=== PATIENT | female | born 1935 | race Caucasian/White ===

== ENCOUNTER 2019-11-20 11:54 | Inpatient (IN) | payer MEDICARE ==
--- NOTE | 2019-11-20 12:20 | ED ---
General Adult HPI - General Chief complaint: Arrhythmia/Palpitations Stated complaint: Tachycardia Time Seen by Provider: 11/20/19 12:06 Source: patient, family, EMS, RN notes reviewed Mode of arrival: EMS Limitations: physical limitation - History of Present Illness Initial comments: patient is a pleasant 84-year-old female presenting to the emergency department with fatigue and dysrhythmia. Heart rate has been as high as 142 last night and 138 this morning. Blood pressure was in the 80s. Patient does have history of A. fib recently diagnosed a few months ago. Patient has been more fatigued and easily falling asleep. No confusion. No weakness. Patient denies any chest discomfort or dyspnea. Patient does have history of hyponatremia, last sodium level was 127 through primary care physician office. - Related Data Allergies Allergy/AdvReac Type Severity Reaction Status Date / Time amiodarone AdvReac Unknown Verified 11/20/19 12:22 amoxicillin [From Augmentin] AdvReac Rash/Hives Verified 11/20/19 12:19 clavulanic acid AdvReac Rash/Hives Verified 11/20/19 12:19 [From Augmentin] Review of Systems ROS Statement: Those systems with pertinent positive or pertinent negative responses have been documented in the HPI. ROS Other: All systems not noted in ROS Statement are negative. Constitutional: Denies: fever Eyes: Denies: eye pain ENT: Denies: ear pain Respiratory: Denies: cough, dyspnea Cardiovascular: Reports: as per HPI. Denies: chest pain Endocrine: Reports: fatigue Gastrointestinal: Denies: abdominal pain Genitourinary: Denies: dysuria Musculoskeletal: Denies: back pain Skin: Denies: rash Neurological: Denies: weakness Past Medical History Past Medical History: Atrial Fibrillation, Hypertension History of Any Multi-Drug Resistant Organisms: None Reported Past Surgical History: Breast Surgery Additional Past Surgical History / Comment(s): pts daughter states she had left side breast cancer with masectomy in 1993, pts daughter also states her mom has been diagnosed with A-Fib from another doctor that is out of state, pt was living with other daughter in different state, and that pt fell approx 3 weeks ago resulting in left broken wrist and also had juanita removed from head last Wednesday Past Psychological History: No Psychological Hx Reported Smoking Status: Never smoker Past Alcohol Use History: None Reported Past Drug Use History: None Reported General Exam Limitations: no limitations General appearance: alert, in no apparent distress Head exam: Present: normocephalic Eye exam: Present: normal appearance, PERRL, EOMI ENT exam: Present: normal oropharynx Neck exam: Present: normal inspection Respiratory exam: Present: normal lung sounds bilaterally Cardiovascular Exam: Present: irregular rhythm GI/Abdominal exam: Present: soft. Absent: tenderness Extremities exam: Present: normal inspection, other (Brace on the left wrist) Neurological exam: Present: alert, oriented X3, CN II-XII intact. Absent: motor sensory deficit Expanded Neurological exam: Present: protecting the airway Patient oriented to: Present: person, place, time Motor strength exam: RUE: 5, LUE: 5, RLE: 5, LLE: 5 Eye Response: (4) open spontaneously Motor Response: (6) obeys commands Verbal Response: (5) oriented Psychiatric exam: Present: normal affect, normal mood Skin exam: Present: normal color Course Vital Signs 11/20/19 12:01 Temperature 98.2 F Pulse Rate 81 Respiratory 16 Rate Blood Pressure 122/54 O2 Sat by Pulse 97 Oximetry EKG Findings - EKG Comments: EKG Findings:: A. fib with rate of 90. QRS 84. QT 368. QTC 450. Normal axis. Normal QRS. T wave flattening. Medical Decision Making - Medical Decision Making Patient reevaluated. Patient and family updated. Heart rate jumps between 90 and 120. Case was discussed with Dr. Santoro, who will admit covering for hospital call. - Lab Data Result diagrams: 11/20/19 13:09 11/20/19 13:09 Lab Results 11/20/19 11/20/19 11/20/19 Range/Units 13:09 13:09 13:09 WBC 6.7 (3.8-10.6) k/uL RBC 3.75 L (3.80-5.40) m/uL Hgb 10.2 L (11.4-16.0) gm/dL Hct 33.1 L (34.0-46.0) % MCV 88.4 (80.0-100.0) fL MCH 27.2 (25.0-35.0) pg MCHC 30.7 L (31.0-37.0) g/dL RDW 18.0 H (11.5-15.5) % Plt Count 345 (150-450) k/uL Neutrophils % 66 % Lymphocytes % 16 % Monocytes % 13 % Eosinophils % 3 % Basophils % 0 % Neutrophils # 4.4 (1.3-7.7) k/uL Lymphocytes # 1.1 (1.0-4.8) k/uL Monocytes # 0.9 (0-1.0) k/uL Eosinophils # 0.2 (0-0.7) k/uL Basophils # 0.0 (0-0.2) k/uL Manual Slide Review Performed Polychromasia Present Hypochromasia Moderate Anisocytosis Slight PT 11.3 (9.0-12.0) sec INR 1.1 (<1.2) APTT 25.8 (22.0-30.0) sec Sodium 132 L (137-145) mmol/L Potassium 4.7 (3.5-5.1) mmol/L Chloride 95 L (98-107) mmol/L Carbon Dioxide 32 H (22-30) mmol/L Anion Gap 5 mmol/L BUN 15 (7-17) mg/dL Creatinine 0.61 (0.52-1.04) mg/dL Est GFR (CKD-EPI)AfAm >90 (>60 ml/min/1.73 sqM) Est GFR (CKD-EPI)NonAf 84 (>60 ml/min/1.73 sqM) Glucose 100 H (74-99) mg/dL Calcium 8.4 (8.4-10.2) mg/dL Magnesium 1.9 (1.6-2.3) mg/dL Total Bilirubin 0.7 (0.2-1.3) mg/dL AST 23 (14-36) U/L ALT 12 (4-34) U/L Alkaline Phosphatase 137 H (38-126) U/L Troponin I (0.000-0.034) ng/mL Total Protein 6.3 (6.3-8.2) g/dL Albumin 3.4 L (3.5-5.0) g/dL TSH 3.310 (0.465-4.680) mIU/L Free T4 1.71 (0.78-2.19) ng/dL Free T3 pg/mL 3.0 (2.8-5.3) pg/ml 11/20/19 Range/Units 13:09 WBC (3.8-10.6) k/uL RBC (3.80-5.40) m/uL Hgb (11.4-16.0) gm/dL Hct (34.0-46.0) % MCV (80.0-100.0) fL MCH (25.0-35.0) pg MCHC (31.0-37.0) g/dL RDW (11.5-15.5) % Plt Count (150-450) k/uL Neutrophils % % Lymphocytes % % Monocytes % % Eosinophils % % Basophils % % Neutrophils # (1.3-7.7) k/uL Lymphocytes # (1.0-4.8) k/uL Monocytes # (0-1.0) k/uL Eosinophils # (0-0.7) k/uL Basophils # (0-0.2) k/uL Manual Slide Review Polychromasia Hypochromasia Anisocytosis PT (9.0-12.0) sec INR (<1.2) APTT (22.0-30.0) sec Sodium (137-145) mmol/L Potassium (3.5-5.1) mmol/L Chloride (98-107) mmol/L Carbon Dioxide (22-30) mmol/L Anion Gap mmol/L BUN (7-17) mg/dL Creatinine (0.52-1.04) mg/dL Est GFR (CKD-EPI)AfAm (>60 ml/min/1.73 sqM) Est GFR (CKD-EPI)NonAf (>60 ml/min/1.73 sqM) Glucose (74-99) mg/dL Calcium (8.4-10.2) mg/dL Magnesium (1.6-2.3) mg/dL Total Bilirubin (0.2-1.3) mg/dL AST (14-36) U/L ALT (4-34) U/L Alkaline Phosphatase (38-126) U/L Troponin I <0.012 (0.000-0.034) ng/mL Total Protein (6.3-8.2) g/dL Albumin (3.5-5.0) g/dL TSH (0.465-4.680) mIU/L Free T4 (0.78-2.19) ng/dL Free T3 pg/mL (2.8-5.3) pg/ml - Radiology Data Radiology results: image reviewed (Chest x-ray shows no acute process) Disposition Clinical Impression: Atrial fibrillation with RVR, Near syncope Disposition: ADMITTED IP TO THIS HOSP Is patient prescribed a controlled substance at d/c from ED?: No Referrals: Nonstaff,Physician [Primary Care Provider] - 1-2 days Decision Time: 14:36
[2019-11-20 13:29] LABS: Anisocytosis Slight; Basophils % (A) 0 %; Eosinophils # (A) 0.2 k/uL (0-0.7); Eosinophils % (A) 3 %; HCT 33.1 % (34.0-46.0); HGB 10.2 gm/dL (11.4-16.0); Hypochromasia Moderate; Lymphocytes # (A) 1.1 k/uL (1.0-4.8); Lymphocytes % (A) 16 %; MCH 27.2 pg (25.0-35.0); MCHC 30.7 g/dL (31.0-37.0); MCV 88.4 fL (80.0-100.0); Mean Platelet Volume 7.7; Monocytes # (A) 0.9 k/uL (0-1.0); Monocytes % (A) 13 %; Neutrophils # (A) 4.4 k/uL (1.3-7.7); Neutrophils % (A) 66 %; Platelet Count 345 k/uL (150-450); RBC 3.75 m/uL (3.80-5.40); WBC 6.7 k/uL (3.8-10.6)
[2019-11-20 13:30] LABS: ALT 12 U/L (4-34); AST 23 U/L (14-36); African American GFR (CKD) >90 (>60 ml/min/1.73 sqM); Albumin 3.4 g/dL (3.5-5.0); Alkaline Phosphatase 137 U/L (38-126); Anion Gap 5 mmol/L; Blood Urea Nitrogen 15 mg/dL (7-17); Calcium 8.4 mg/dL (8.4-10.2); Carbon Dioxide 32 mmol/L (22-30); Chloride 95 mmol/L (98-107); Glucose 100 mg/dL (74-99); Magnesium 1.9 mg/dL (1.6-2.3); Non-African American GFR(CKD) 84 (>60 ml/min/1.73 sqM); Potassium 4.7 mmol/L (3.5-5.1); Sodium 132 mmol/L (137-145); Total Bilirubin 0.7 mg/dL (0.2-1.3); Total Protein 6.3 g/dL (6.3-8.2)
[2019-11-20 13:40] LABS: INR 1.1 (<1.2); Partial Thromboplastin Time 25.8 sec (22.0-30.0); Prothrombin Time 11.3 sec (9.0-12.0)
[2019-11-20 13:46] LABS: T4, Free (Free Thyroxine) 1.71 ng/dL (0.78-2.19)
--- NOTE | 2019-11-20 13:57 | XR ---
EXAMINATION TYPE: XR chest 2V DATE OF EXAM: 11/20/2019 COMPARISON: None INDICATION: Low heart rate, dysrhythmia TECHNIQUE: Frontal and lateral views of the chest are obtained. FINDINGS: The heart size is enlarged. The pulmonary vasculature is normal. The lungs are clear. There is hyperinflation and flattening the diaphragms compatible COPD. IMPRESSION: 1. No acute pulmonary process. 2. COPD. 3. Cardiomegaly
[2019-11-20] MEDS: SODIUM CHLORIDE 0.9% 1,000 ML IV STA ×2 (14:09→20:36)
[2019-11-20 14:23] LABS: Polychromasia Present
[2019-11-20] MEDS ORDERED: NALOXONE 0.4 MG/ML 1 ML VIAL IV PRN (14:36)
[2019-11-20] MEDS: SODIUM CHLORIDE 0.9% 1,000 ML IV SCH (17:25)
[2019-11-20] MEDS: METOPROLOL TARTRATE 50 MG TAB PO SCH (17:45)
[2019-11-20] MEDS: DILTIAZEM CD 180 MG CAP.ER.24H PO SCH (17:45)
[2019-11-20] MEDS ORDERED: polyethylene glycoL 3350 17 GM POWD.PACK PO PRN (18:15)
[2019-11-20 18:44] LABS: Appearance,Urine Clear (Clear); Bilirubin,Urine Negative (Negative); Blood,Urine Negative (Negative); Color,Urine Light Yellow; Glucose,Urine (UA) Negative (Negative); Ketones,Urine Negative (Negative); Leukocyte Esterase,Urine Negative (Negative); Nitrite,Urine Negative (Negative); PH, Urine 6.5 (5.0-8.0); Protein,Urine Negative (Negative); Specific Gravity,Urine 1.013 (1.001-1.035); Urobilinogen,Urine <2.0 mg/dL (<2.0)
--- NOTE | 2019-11-20 19:38 | CT ---
EXAMINATION TYPE: CT chest angio for PE DATE OF EXAM: 11/20/2019 COMPARISON: None HISTORY: Elevated d dimer. CT DLP: 382.7 mGycm Automated exposure control for dose reduction was used. CONTRAST: Performed with IV Contrast, patient injected with 100 mL of Isovue 370. There are 3-D post processed images. There is a mild to moderate right pleural effusion. Heart appears slightly enlarged. There is no silvano cardial effusion. There is mild infiltrate and atelectasis right lung base. There is some contrast re flux into the inferior vena cava that is suggestive of heart failure. There is no mediastinal adenopathy. Thoracic aorta is atheromatous. There are no hilar masses. There is normal contrast opacification of the pulmonary arteries. There are no filling defects. There is 15% anterior wedging of T11 vertebral body. IMPRESSION: Cardiomegaly with pleural fluid and right basilar mild infiltrate and atelectasis is consistent with congestive heart failure. No evidence of pulmonary embolism.
[2019-11-20] MEDS ORDERED: SODIUM CHLORIDE 0.9% 1,000 ML IV SCH (20:00)
[2019-11-20] MEDS ORDERED: ALBUTEROL NEBULIZED 1.25 MG/3 ML INHALATION PRN (20:09)
[2019-11-20] MEDS: MELATONIN 5 MG TABLET PO SCH (20:35)
[2019-11-20] MEDS: POTASSIUM CHLORIDE ER 20 MEQ TAB.ER PO SCH (20:36)
[2019-11-20] MEDS: CALCIUM CARB-VIT D 500MG-200UN 1 EACH TAB PO SCH (20:36)
[2019-11-20] MEDS: FUROSEMIDE 10 MG/ML 4 ML VIAL IV SCH (20:36)
[2019-11-20] MEDS: APIXABAN 5 MG TAB PO SCH (20:36)
[2019-11-20] MEDS: VIT A,C & E-LUTEIN-MINERALS 1 EACH TAB PO SCH (20:43)
[2019-11-20] MEDS ORDERED: METOPROLOL TARTRATE 50 MG TAB PO SCH (21:00)
--- NOTE | 2019-11-20 22:39 | US ---
EXAMINATION TYPE: US venous doppler duplex LE DATE OF EXAM: 11/20/2019 7:45 PM COMPARISON: NONE CLINICAL HISTORY: elevated D-Dimer. Elevated D-Dimer. No hx of DVT. Patient on Eliquis and aspirin. SIDE PERFORMED: Bilateral TECHNIQUE: The lower extremity deep venous system is examined utilizing real time linear array sonog roxi with graded compression, doppler sonography and color-flow sonography. VESSELS IMAGED: External Iliac Vein (EIV) Common Femoral Vein Deep Femoral Vein Greater Saphenous Vein * Femoral Vein Popliteal Vein Small Saphenous Vein * Proximal Calf Veins (* superficial vessels) Right Leg: No evidence of DVT in veins imaged at this time from prox calf veins to EIV. Left Leg: No evidence of DVT in veins imaged at this time from prox calf veins to EIV. IMPRESSION: No sign of deep vein thrombosis in both legs.
--- NOTE | 2019-11-20 23:14 | HP ---
HISTORY AND PHYSICAL CHIEF COMPLAINTS: Tachycardia as well as shortness of breath and fatigue. HISTORY OF PRESENT ILLNESS: This 84-year-old woman with a past medical history of multiple medical problems, including atrial fibrillation, history of hyperlipidemia, hypertension, thyroid disorder, history of breast surgery and anxiety, being followed by a primary physician in the [facility], was visiting her daughter. The patient was complaining of weakness and some shortness of breath, and because of multiple difficulties the patient came to [facility] and was admitted for evaluation and treatment. Evaluation in the ER showed atrial ablation with a heart rate around 90. The patient also had features of CHF. Patient is being closely monitored at this time. Chest x-ray was personally reviewed by me. Chest CTA showed cardiomegaly with pleural fluid and right basilar mild infiltrate, atelectasis consistent with congestive heart failure. The BNP is not available. There is no history of any fever, rigor or chills. No history of headache, loss of consciousness, seizures. No history of any contact with COVID-19. PAST MEDICAL HISTORY: Atrial fibrillation, history of hyperlipidemia, hypertension, hypothyroidism. MEDICATIONS: Home medications are Vagisil cream, mupirocin, Benefiber, vitamin C, zinc, potassium, K- Dur 20, Miralax, Singulair, Lopressor, melatonin, Synthroid, Lasix, Vasotec, Cardizem, vitamin D3, Lipitor, Ecotrin, Eliquis, Fosamax. ALLERGIES: AMIODARONE, AMOXICILLIN, CLAVULANIC ACID. FAMILY HISTORY: History of respiratory disorder and black lung disease. SOCIAL HISTORY: No history of smoking. No history of alcohol intake. REVIEW OF SYSTEMS: ENT: Diminished hearing. Diminished vision. CARDIOVASCULAR SYSTEM: As mentioned earlier. RESPIRATORY SYSTEM: As mentioned earlier. GI: No nausea, vomiting. : No dysuria or retention. NERVOUS SYSTEM: No numbness, weakness. ALLERGY/IMMUNOLOGY: No asthma, hayfever. MUSCULOSKELETAL: As mentioned earlier. HEMATOLOGY/ONCOLOGY: No history of anemia. ENDOCRINE: Hypothyroidism. CONSTITUTIONAL: As mentioned earlier. DERMATOLOGY: Negative. RHEUMATOLOGY: Negative. PSYCHIATRY: As mentioned earlier. PHYSICAL EXAMINATION: Patient alert and oriented x3. Pulse is 126, irregular. Blood pressure is 142/68, respiration 16, temperature 98.3, pulse ox 97% on room air. HEENT: Conjunctivae normal. Oral mucosa moist. Facial puffiness present. NECK: No jugular venous distention. No carotid bruit. No lymph node enlargement. CARDIOVASCULAR SYSTEM: S1, S2 irregular. Ejection systolic murmur. RESPIRATORY SYSTEM: Breath sounds diminished at the bases. A few scattered rhonchi and crackles. No crackles. ABDOMEN: Soft, non-tender. No mass palpable. LEGS: No edema. No swelling. NERVOUS SYSTEM: Higher functions as mentioned earlier. Moves all 4 limbs. No focal motor or sensory deficit. LYMPHATICS: No lymph node palpable in neck, axillae or groin. SKIN: No ulcer, rash, bleeding. JOINTS: No active deforming arthropathy. LABS: WBC 6.6, hemoglobin 10.2. Sodium 132. Other labs are noted. ASSESSMENT: 1. Atrial fibrillation with fast ventricular rate. 2. Possible congestive heart failure, acute exacerbation; ejection fraction unknown. 3. History of chronic atrial fibrillation. 4. Hyponatremia. 5. Anemia, normocytic anemia of chronic disease possibly. 6. History of hyperlipidemia. 7. Hypertension. 8. Hypothyroidism. 9. Left wrist fracture. 10.History of degenerative joint disease. 11.History of breast cancer with surgery. 12.History of bilateral macular degeneration. 13.History of anxiety. 14.FULL CODE. RECOMMENDATIONS AND DISCUSSION: In this 84-year-old woman who presented with multiple complex medical issues, we will monitor the patient closely, continue the current medications, continue symptomatic treatment. We will continue with p.o. Cardizem at this time. We will monitor the patient on telemetry. I would also recommend Lasix 40 mg IV twice daily. Fluid restriction to 1200 mL. Two-dimensional echo. Cardiology consultation. Rule out myocardial infarction. The initial troponins are negative. I would also obtain a UA with micro. Otherwise, the prognosis is extremely guarded because of multiple complex medical issues. Further recommendations to follow. Discussed with the patient, who understands and agrees. MMODL / IJN: [id number] /
--- NOTE | 2019-11-21 00:46 | CONS ---
CONSULTATION CHIEF COMPLAINT: Heart rate was elevated and episodes of mild dizziness. This is an 84-year-old lady with history of atrial fibrillation, hypertension, hypothyroidism, and hyponatremia who is originally from [place], was living with her daughter over there and recently came to [place] to live with one of her other daughters. The daughter noted that the heart rate was elevated due to which she brought her to the hospital where she was found to be in atrial fibrillation with a heart rate of 90 beats per minute with nonspecific ST-T wave changes. Subsequently, her heart rate became elevated and currently is at 130. She denies chest pain, difficulty in breathing. Has mild leg edema. There is no history of PND or orthopnea. There is no prior history of coronary artery disease or congestive heart failure. She has never been evaluated by a moderate needs teacher. The patient has been struggling with low sodium and the hydrochlorothiazide that she was on, has been held. PAST MEDICAL HISTORY: Significant for hypertension, hypothyroidism, dyslipidemia and permanent atrial fibrillation. CURRENT MEDICATIONS: Include created K-Dur 20 b.i.d., Singulair, Lopressor 25 b.i.d., Synthroid, Lasix, Vasotec, Cardizem CD 180 daily, Lipitor 10 daily, aspirin, Eliquis, and Fosamax. ALLERGIES: SHE IS ALLERGIC TO AMIODARONE, AMOXICILLIN, AND CLAVULANIC ACID. SOCIAL HISTORY: Negative for current smoking. There is no history of EtOH abuse or drug abuse. REVIEW OF SYSTEMS: HEENT is unremarkable. CARDIAC as described above. RESPIRATORY as described above. GI negative. negative. ALLERGY none. IMMUNOLOGY: Negative. SKIN negative. MUSCULOSKELETAL significant for arthritis. PSYCHOSOCIAL negative. DERM negative. ONCOLOGICAL: Negative. TEST LEAD negative. Rest of the system review is not relevant. PHYSICAL EXAMINATION: On exam comfortable at rest. Blood pressure is normal. Heart rate is around 130 beats per minute. Chest exam reveals good air entry bilaterally. Heart exam reveals first and second heart sounds. No gallop. Abdomen soft. Exam of extremities reveals mild edema bilaterally. Peripheral pulses are diminished. LAB: Hemoglobin of 10.2, platelet count of 345, potassium is 4.7 creatinine is 0.6. ASSESSMENT: 1. Permanent atrial fibrillation with poorly controlled ventricular rate. 2. Hypertension. 3. Dyslipidemia. PLAN: I will obtain her records from [place]. I will obtain a 2D echo to evaluate her LV function. I will resume the Cardizem and the beta blockers that she was on at home and hopefully this will help control her heart rate. We will continue the Eliquis that she is already on. I anticipate her feeling better over the next 24 hours and be able to be discharged home. If necessary, we will consider an outpatient stress test. JORDY / IBETH: [id number] /
[2019-11-21] MEDS: LEVOTHYROXINE 50 MCG TAB PO SCH (05:54)
[2019-11-21] MEDS: MONTELUKAST 10 MG TAB PO SCH (07:58)
[2019-11-21] MEDS: POTASSIUM CHLORIDE ER 20 MEQ TAB.ER PO SCH ×2 (07:58→22:15)
[2019-11-21] MEDS: APIXABAN 5 MG TAB PO SCH ×2 (07:58→22:12)
[2019-11-21] MEDS: ATORVASTATIN 10 MG TAB PO SCH (07:58)
[2019-11-21] MEDS: FUROSEMIDE 10 MG/ML 4 ML VIAL IV SCH (07:58)
[2019-11-21] MEDS: ASPIRIN 81 MG PO SCH (07:58)
[2019-11-21] MEDS: CALCIUM CARB-VIT D 500MG-200UN 1 EACH TAB PO SCH ×2 (07:59→22:12)
[2019-11-21] MEDS: METOPROLOL TARTRATE 50 MG TAB PO SCH ×3 (07:59→22:12)
[2019-11-21] MEDS: DILTIAZEM CD 180 MG CAP.ER.24H PO SCH (08:53)
[2019-11-21] MEDS: VIT A,C & E-LUTEIN-MINERALS 1 EACH TAB PO SCH (08:53)
[2019-11-21] MEDS ORDERED: lisinopriL 20 MG TAB PO SCH (09:00)
[2019-11-21] MEDS ORDERED: FUROSEMIDE 40 MG TAB PO SCH (09:00)
--- NOTE | 2019-11-21 11:43 | ECHOF ---
Referral Reason:elevated heart rate, a fib MEASUREMENTS -------- HEIGHT: 160.0 cm WEIGHT: 69.4 kg BP: 117/64 RVIDd: 3.7 cm (< 3.3) IVSd: 0.9 cm (0.6 - 1.1) LVIDd: 3.6 cm (3.9 - 5.3) LVPWd: 0.9 cm (0.6 - 1.1) IVSs: 1.5 cm LVIDs: 2.0 cm LVPWs: 1.4 cm LA Diam: 3.9 cm (2.7 - 3.8) LAESV Index (A-L): 32.00 ml/m Ao Diam: 2.6 cm (2.0 - 3.7) AV Cusp: 1.6 cm (1.5 - 2.6) MV EXCURSION: 16.095 mm (> 18.000) MV EF SLOPE: 154 mm/s (70 - 150) EPSS: 0.7 cm RAP: 5.00 mmHg RVSP: 34.20 mmHg FINDINGS -------- Atrial fibrillation. This was a technically good study. The left ventricular size is normal. Left ventricular wall thickness is normal. Overall left vent ricular systolic function is mild-moderately impaired with, an EF between 40 - 45 %. The right ventricle is mildly enlarged. LA is midly dilated 29-33ml/m2. The right atrium is normal in size. Prominent Chiari network seen in right atrium (normal finding). Interatrial and interventricular septum intact. There is mild aortic valve sclerosis. Mild mitral annular calcification present. Mild mitral regurgitation is present. [id number] tricuspid regurgitation present. Trace/mild (physiologic) pulmonic regurgitation. The aortic root size is normal. Normal inferior vena cava with normal inspiratory collapse consistent with estimated right atrial pre ssure of 5 mmHg. There is no pericardial effusion. CONCLUSIONS -------- 1. The left ventricular size is normal. 2. Left ventricular wall thickness is normal. 3. Overall left ventricular systolic function is mild-moderately impaired with, an EF between 40 - 45 %. 4. The right ventricle is mildly enlarged. 5. LA is midly dilated 29-33ml/m2. 6. Prominent Chiari network seen in right atrium (normal finding). 7. There is mild aortic valve sclerosis. 8. Mild mitral annular calcification present. 9. Mild mitral regurgitation is present. 10. [id number] tricuspid regurgitation present. 11. Trace/mild (physiologic) pulmonic regurgitation. 12. There is no pericardial effusion. CANDY SPREADER: Marycruz Kenney RDCS
--- NOTE | 2019-11-21 12:31 | P.PN ---
Subjective Progress Note Date: 11/21/19 CHIEF COMPLAINT: Tachycardia HISTORY OF PRESENT ILLNESS: Patient examined this morning at the bedside. She denies chest pain. Denies shortness of breath. HR low 100s this morning. Blood pressure PHYSICAL EXAM: VITAL SIGNS: Reviewed. GENERAL: Well-developed in no acute distress. NECK: Supple. No JVD or thyromegaly LUNGS: Respirations even and unlabored. Lungs essentially clear to auscultation bilaterally. HEART: Irregular rate and rhythm. S1 and S2 heard. EXTREMITIES: Normal range of motion. No clubbing or cyanosis. Peripheral pu lses intact. No lower extremity edema ASSESSMENT: Chronic persistent atrial fibrillation with poorly controlled ventricular rate Hypertension Hyperlipidemia History of hyponatremia, secondary to hydrochlorothiazide Cardiomyopathy, EF 40-45% PLAN: Continue Eliquis Discontinue IV lasix. Resume home oral lasix of 40mg daily Continue Cardizem Increase Metoprolol to 50mg TID Continue telemetry monitoring Nurse practitioner note has been reviewed by physician. Signing provider agrees with the documented findings, assessment, and plan of care. Objective - Vital Signs Vital signs: Vital Signs Temp 97.9 F 11/21/19 07:52 Pulse 103 H 11/21/19 09:00 Resp 16 11/21/19 07:52 BP 120/65 11/21/19 07:52 Pulse Ox 96 11/21/19 07:52 Intake & Output 11/20/19 11/21/19 11/21/19 18:59 06:59 18:59 Intake Total 1250 Balance 1250 Weight 69.4 kg Intake: Intake, IV Titration 1050 Amount Sodium Chloride 0.9% 1, 1050 000 ml @ 75 mls/hr IV . [id number] PITO Rx#:[id number] Oral 200 Other: Voiding Method Toilet # Voids 1 - Labs CBC & Chem 7: 11/20/19 13:09 11/20/19 13:09 Labs: Abnormal Lab Results - Last 24 Hours (Table) 11/20/19 11/20/19 11/20/19 Range/Units 13:09 13:09 13:09 RBC 3.75 L (3.80-5.40) m/uL Hgb 10.2 L (11.4-16.0) gm/dL Hct 33.1 L (34.0-46.0) % MCHC 30.7 L (31.0-37.0) g/dL RDW 18.0 H (11.5-15.5) % D-Dimer 0.89 H (<0.60) mg/L FEU Sodium 132 L (137-145) mmol/L Chloride 95 L (98-107) mmol/L Carbon Dioxide 32 H (22-30) mmol/L Glucose 100 H (74-99) mg/dL Alkaline Phosphatase 137 H (38-126) U/L Albumin 3.4 L (3.5-5.0) g/dL
[2019-11-21] MEDS ORDERED: METOPROLOL TARTRATE 25 MG TAB PO SCH (16:00)
[2019-11-21] MEDS ORDERED: METOPROLOL TARTRATE 50 MG TAB PO SCH (16:00)
[2019-11-21] MEDS: SODIUM CHLORIDE 0.9% 1,000 ML IV SCH (17:02)
--- NOTE | 2019-11-21 17:17 | PN ---
PROGRESS NOTE DATE OF SERVICE: 11/21/2019 This 84-year-old woman who was admitted with atrial fibrillation with a fast ventricular rate also had CHF, acute exacerbation. Patient is on diuretics. The patient is also on Cardizem. The patient is being closely monitored. No chest pain. No palpitations. Past medical history reviewed. REVIEW OF SYSTEMS: CARDIOVASCULAR SYSTEM: As mentioned earlier. RESPIRATORY SYSTEM: As mentioned earlier. GI: As mentioned earlier. : No dysuria or retention. NERVOUS SYSTEM: No numbness, weakness. CURRENT MEDICATIONS: Reviewed. They include: 1. Ventolin q.i.d. p.r.n. 2. Eliquis 5 mg p.o. b.i.d. 3. Aspirin 81 mg. 4. Lipitor. 5. Os-Efrain with vitamin D. 6. FiberCon. 7. Cardizem CD. 8. Lexapro. 9. Lasix. 10.Synthroid. 11.Zestril. 12.Melatonin. 13.Lopressor. 14.Narcan. 15.Protonix. PHYSICAL EXAMINATION: Patient is alert, oriented x3. Pulse 90, blood pressure 109/58, respirations 16, temperature 97.8, pulse ox % on room air. HEENT: Conjunctivae normal. NECK: No jugular venous distention. CARDIOVASCULAR SYSTEM: S1, S2 muffled. RESPIRATORY SYSTEM: Breath sounds diminished at the bases. A few scattered rhonchi and crackles. ABDOMEN: Soft, non-tender. LEGS: No edema. No swelling. NERVOUS SYSTEM: Higher functions as mentioned earlier. Moves all 4 limbs. No focal motor or sensory deficit. LYMPHATICS: No lymph node palpable in neck, axillae or groin. SKIN: No ulcer, rash, bleeding. JOINTS: No active deforming arthropathy. LABS: WBC 6.7, hemoglobin 10.2. Sodium is 132. ASSESSMENT: 1. Atrial fibrillation with fast ventricular rate. 2. Congestive heart failure, acute exacerbation, with acute on chronic systolic dysfunction, ejection fraction 40% to 45%. 3. Mild mitral regurgitation. 4. Mild to moderate tricuspid regurgitation. 5. History of chronic atrial fibrillation. 6. Hyponatremia. 7. Anemia, normocytic anemia of chronic disease possibly. 8. History of hyperlipidemia. 9. Hypertension. 10.Hypothyroidism. 11.Left wrist fracture history. 12.History of degenerative joint disease. 13.History of breast cancer and surgery. 14.History of bilateral macular degeneration. 15.History of anxiety. 16.FULL CODE. RECOMMENDATIONS AND DISCUSSION: I recommend to continue current medications, continue with the monitoring, symptomatic treatment. Otherwise at this time I recommend continuing with diuretics. Repeat labs. COVID-19 is pending at this time. Continue the Cardizem. Continue with the beta blockers. Guarded prognosis. Further recommendations to follow. Discussed with the family at length. MMDEREKL / IJN: [id number] / SAURABH
[2019-11-21] MEDS: MELATONIN 5 MG TABLET PO SCH (22:12)
[2019-11-21] MEDS: ESCITALOPRAM 5 MG TAB PO SCH (22:15)
[2019-11-22] MEDS: VIT A,C & E-LUTEIN-MINERALS 1 EACH TAB PO SCH ×3 (00:04→21:17)
[2019-11-22] MEDS: LEVOTHYROXINE 50 MCG TAB PO SCH (06:00)
[2019-11-22] MEDS: lisinopriL 20 MG TAB PO SCH (07:39)
[2019-11-22] MEDS: FUROSEMIDE 40 MG TAB PO SCH (07:39)
[2019-11-22] MEDS: MONTELUKAST 10 MG TAB PO SCH (07:39)
[2019-11-22] MEDS: CALCIUM CARB-VIT D 500MG-200UN 1 EACH TAB PO SCH ×2 (07:39→21:18)
[2019-11-22] MEDS: POTASSIUM CHLORIDE ER 20 MEQ TAB.ER PO SCH ×2 (07:39→21:18)
[2019-11-22] MEDS: ASPIRIN 81 MG PO SCH (07:39)
[2019-11-22] MEDS: METOPROLOL TARTRATE 50 MG TAB PO SCH ×3 (07:39→21:17)
[2019-11-22] MEDS: ATORVASTATIN 10 MG TAB PO SCH (07:39)
[2019-11-22] MEDS: APIXABAN 5 MG TAB PO SCH ×2 (07:40→21:17)
[2019-11-22] MEDS: DILTIAZEM CD 180 MG CAP.ER.24H PO SCH (07:40)
[2019-11-22 09:16] LABS: African American GFR (CKD) >90 (>60 ml/min/1.73 sqM); Anion Gap 5 mmol/L; Blood Urea Nitrogen 17 mg/dL (7-17); Calcium 8.3 mg/dL (8.4-10.2); Carbon Dioxide 31 mmol/L (22-30); Chloride 92 mmol/L (98-107); Glucose 193 mg/dL (74-99); Non-African American GFR(CKD) 83 (>60 ml/min/1.73 sqM); Potassium 5.1 mmol/L (3.5-5.1); Sodium 128 mmol/L (137-145)
[2019-11-22 09:57] LABS: Anisocytosis Slight; Basophils % (A) 0 %; Eosinophils # (A) 0.1 k/uL (0-0.7); Eosinophils % (A) 2 %; HCT 31.7 % (34.0-46.0); HGB 9.6 gm/dL (11.4-16.0); Hypochromasia Marked; Lymphocytes # (A) 0.7 k/uL (1.0-4.8); Lymphocytes % (A) 14 %; MCH 27.2 pg (25.0-35.0); MCHC 30.3 g/dL (31.0-37.0); MCV 89.6 fL (80.0-100.0); Monocytes # (A) 0.4 k/uL (0-1.0); Monocytes % (A) 8 %; Neutrophils # (A) 3.8 k/uL (1.3-7.7); Neutrophils % (A) 74 %; Platelet Count 309 k/uL (150-450); RBC 3.54 m/uL (3.80-5.40); WBC 5.2 k/uL (3.8-10.6)
--- NOTE | 2019-11-22 12:41 | P.PN ---
Subjective This is a pleasant 84-year-old female past medical history significant for chronic persistent atrial fibrillation with poorly controlled ventricular rate, hypertension, dyslipidemia and nonischemic cardiomyopathy. She is seen and examined sitting up on the edge of the bed in no acute distress. She denies chest pain, dizziness or palpitations. Blood pressure 124/83 heart rate of 114. Laboratory data reviewed, WBC 5.2, hemoglobin 9.6, platelets 309, sodium 128, potassium 5.1, creatinine 0.64 and NT proBNP 2230. Currently maintained on Eliquis 5 mg twice a day, aspirin 81 mg daily, atorvastatin 10 mg daily, diltiazem 180 mg daily, Lasix 40 mg daily, lisinopril 20 mg daily and metoprolol 50 mg 3 times a day. GENERAL: Well-appearing, well-nourished and in no acute distress. NECK: Supple without JVD or thyromegaly. LUNGS: Breath sounds clear to auscultation bilaterally. Respiration equal and unlabored. No wheezes, rales or rhonchi. HEART: Irregular rate and rhythm without murmurs, rubs or gallops. S1 and S2 heard. EXTREMITIES: Normal range of motion, no edema. No clubbing or cyanosis. Peripheral pulses intact. ASSESSMENT Chronic persistent atrial fibrillation with poorly controlled ventricular rates, slowly improving since admission. On Eliquis. Hyponatremia Nonischemic cardiomyopathy Hypertension Dyslipidemia PLAN Increase diltiazem to 240 mg daily. Nurse Practitioner note has been reviewed, I agree with a documented findings and plan of care. Patient was seen and examined. Objective - Vital Signs Vital signs: Vital Signs Temp 97.9 F 11/22/19 07:37 Pulse 105 H 11/22/19 08:43 Resp 16 11/22/19 07:37 BP 124/83 11/22/19 07:37 Pulse Ox 95 11/22/19 07:37 Intake & Output 11/21/19 11/22/19 11/22/19 18:59 06:59 18:59 Intake Total 800 Balance 800 Intake: Oral 800 Other: Voiding Method Toilet # Voids 1 1 - Labs CBC & Chem 7: 11/22/19 08:05 11/22/19 08:05 Labs: Abnormal Lab Results - Last 24 Hours (Table) 11/22/19 11/22/19 Range/Units 08:05 08:05 RBC 3.54 L (3.80-5.40) m/uL Hgb 9.6 L (11.4-16.0) gm/dL Hct 31.7 L (34.0-46.0) % MCHC 30.3 L (31.0-37.0) g/dL RDW 18.0 H (11.5-15.5) % Lymphocytes # 0.7 L (1.0-4.8) k/uL Sodium 128 L (137-145) mmol/L Chloride 92 L (98-107) mmol/L Carbon Dioxide 31 H (22-30) mmol/L Glucose 193 H (74-99) mg/dL Calcium 8.3 L (8.4-10.2) mg/dL
--- NOTE | 2019-11-22 15:02 | XR ---
EXAMINATION TYPE: XR chest 1V portable DATE OF EXAM: 11/22/2019 COMPARISON: 11/20/2019 HISTORY: Shortness of breath TECHNIQUE: Single frontal view of the chest is obtained. FINDINGS: Interstitial pattern with bilateral infiltrate and pleural effusion. Borderline cardiomega ly. Atherosclerotic change aorta. Diffuse osteopenia and arthropathy of the shoulders. No pneumothora x. IMPRESSION: 1. Correlate for mild CHF, otherwise consider interstitial pneumonitis.
--- NOTE | 2019-11-22 15:10 | CT ---
EXAMINATION TYPE: CT brain wo con DATE OF EXAM: 11/22/2019 HISTORY: Mental status changes CT DLP: 1217.4 mGycm. Automated Exposure Control for Dose Reduction was Utilized. TECHNIQUE: CT scan of the head is performed without contrast. COMPARISON: None. FINDINGS: There is no acute intracranial hemorrhage or midline shift identified. There is diffuse v entricular and sulcal prominence consistent with diffuse age-related cerebral atrophy. There is low- attenuation in the periventricular white matter consistent with chronic small vessel ischemic change. The globes are intact and the visualized sinuses are clear. Some prominent arachnoid granulations incidentally noted. IMPRESSION: No acute intracranial hemorrhage or midline shift. There is mild diffuse age-related ce rebral atrophy and fairly moderate chronic small vessel ischemic change noted.
[2019-11-22] MEDS: SODIUM CHLORIDE 0.9% 1,000 ML IV SCH (15:13)
--- NOTE | 2019-11-22 18:54 | PN ---
PROGRESS NOTE DATE OF SERVICE: 11/22/2019 This 84-year-old woman who was admitted with atrial fibrillation also had CHF, acute exacerbation. Patient is being diuresed at this time. The patient also had change in mental status. CT scan showed minimal atrophy. PHYSICAL EXAMINATION: Alert and oriented x2. Pulse is 103, blood pressure 108/65, respirations 16, temperature 97 degrees, pulse ox 98% on room air. HEENT: Conjunctivae normal. NECK: No jugular venous distention. CARDIOVASCULAR SYSTEM: S1, S2 muffled. RESPIRATORY SYSTEM: Breath sounds diminished at the bases. No rhonchi. No crackles. ABDOMEN: Soft, non-tender. LEGS: No edema. No swelling. NERVOUS SYSTEM: No focal deficit. LABS: WBC 5.2, hemoglobin 9.6. Sodium 128. ASSESSMENT: 1. Atrial fibrillation with a fast ventricular rate. 2. Congestive heart failure, acute exacerbation, with acute on chronic systolic dysfunction, ejection fraction 40% to 45%. 3. Hyponatremia. 4. Mild mitral regurgitation. 5. Mild to moderate tricuspid regurgitation on the 2D echo. 6. History of chronic atrial fibrillation. 7. Change in his mental status, metabolic encephalopathy, acute, multifactorial. 8. Hyponatremia. 9. Anemia, normocytic anemia of chronic disease possibly. 10.History of hyperlipidemia. 11.Hypertension. 12.Hypothyroidism. 13.Left wrist fracture history. 14.Degenerative joint disease. 15.History of breast cancer surgery. 16.History of bilateral macular degeneration. 17.History of anxiety. 18.FULL CODE. RECOMMENDATIONS AND DISCUSSION: I recommend to continue current medications, continue with the monitoring, symptomatic treatment. Otherwise at this time I recommend repeat labs. Otherwise, continue with diuretics. Guarded prognosis because of multiple complex medical issues. Further recommendations to follow. MMODL / IJN: [id number] /
[2019-11-22] MEDS: MELATONIN 5 MG TABLET PO SCH (21:18)
[2019-11-22] MEDS: ESCITALOPRAM 5 MG TAB PO SCH (21:18)
[2019-11-22 22:15] VITALS: RESP 18
[2019-11-23] MEDS: LEVOTHYROXINE 50 MCG TAB PO SCH (06:52)
[2019-11-23] MEDS: ASPIRIN 81 MG PO SCH (07:49)
[2019-11-23] MEDS: ATORVASTATIN 10 MG TAB PO SCH (07:49)
[2019-11-23] MEDS: MONTELUKAST 10 MG TAB PO SCH (07:49)
[2019-11-23] MEDS: METOPROLOL TARTRATE 50 MG TAB PO SCH (07:49)
[2019-11-23] MEDS: FUROSEMIDE 40 MG TAB PO SCH (07:49)
[2019-11-23] MEDS: APIXABAN 5 MG TAB PO SCH (07:50)
[2019-11-23] MEDS: lisinopriL 20 MG TAB PO SCH (07:50)
[2019-11-23] MEDS: POTASSIUM CHLORIDE ER 20 MEQ TAB.ER PO SCH (07:50)
[2019-11-23] MEDS: CALCIUM CARB-VIT D 500MG-200UN 1 EACH TAB PO SCH (07:50)
[2019-11-23] MEDS: VIT A,C & E-LUTEIN-MINERALS 1 EACH TAB PO SCH (07:51)
[2019-11-23] MEDS ORDERED: DILTIAZEM CD 240 MG CAP.ER.24H PO SCH (09:00)
[2019-11-23 09:23] LABS: African American GFR (CKD) >90 (>60 ml/min/1.73 sqM); Anion Gap 6 mmol/L; Blood Urea Nitrogen 17 mg/dL (7-17); Calcium 8.4 mg/dL (8.4-10.2); Carbon Dioxide 29 mmol/L (22-30); Chloride 94 mmol/L (98-107); Glucose 130 mg/dL (74-99); Non-African American GFR(CKD) 87 (>60 ml/min/1.73 sqM); Potassium 5.2 mmol/L (3.5-5.1); Sodium 129 mmol/L (137-145)
[2019-11-23 09:27] VITALS: BP 137/71; PULSE 122; TEMP 99.1
--- NOTE | 2019-11-23 10:08 | P.PN ---
Subjective Progress Note Date: 11/23/19 CHIEF COMPLAINT: Tachycardia HISTORY OF PRESENT ILLNESS: Patient examined this morning at the bedside. She denies chest pain. Denies shortness of breath. HR low 100s this morning. Blood pressure 137/71. PHYSICAL EXAM: VITAL SIGNS: Reviewed. GENERAL: Well-developed in no acute distress. NECK: Supple. No JVD or thyromegaly LUNGS: Respirations even and unlabored. Lungs essentially clear to auscultation bilaterally. HEART: Irregular rate and rhythm. S1 and S2 heard. EXTREMITIES: Normal range of motion. No clubbing or cyanosis. Peripheral pulses intact. No lower extremity edema ASSESSMENT: Chronic persistent atrial fibrillation with poorly controlled ventricular rate Hypertension Hyperlipidemia History of hyponatremia, secondary to hydrochlorothiazide Nonischemic cardiomyopathy, EF 40-45% PLAN: Continue current cardiac medications Monitor heart rate after morning medication administration If heart rate controlled, patient may be discharged home from a cardiac perspective. Nurse practitioner note has been reviewed by physician. Signing provider agrees with the documented findings, assessment, and plan of care. Objective - Vital Signs Vital signs: Vital Signs Temp 99.1 F 11/23/19 09:00 Pulse 122 H 11/23/19 09:00 Resp 18 11/23/19 09:00 BP 137/71 11/23/19 09:00 Pulse Ox 96 11/23/19 09:00 Intake & Output 11/22/19 11/23/19 11/23/19 18:59 06:59 18:59 Intake Total 200 Balance 200 Intake: Other 200 Other: Voiding Method Toilet # Voids 2 - Labs CBC & Chem 7: 11/22/19 08:05 11/23/19 08:21 Labs: Abnormal Lab Results - Last 24 Hours (Table) 11/23/19 Range/Units 08:21 Sodium 129 L (137-145) mmol/L Potassium 5.2 H (3.5-5.1) mmol/L Chloride 94 L (98-107) mmol/L Glucose 130 H (74-99) mg/dL
[2019-11-23] MEDS ORDERED: DIGOXIN 250 MCG TAB PO SCH (10:15)
[2019-11-23 10:16] LABS: Anisocytosis Slight; Basophils % (A) 1 %; Eosinophils # (A) 0.1 k/uL (0-0.7); Eosinophils % (A) 3 %; HCT 31.6 % (34.0-46.0); HGB 9.8 gm/dL (11.4-16.0); Hypochromasia Moderate; Lymphocytes # (A) 0.7 k/uL (1.0-4.8); Lymphocytes % (A) 15 %; MCH 26.9 pg (25.0-35.0); MCHC 30.9 g/dL (31.0-37.0); MCV 87.1 fL (80.0-100.0); Mean Platelet Volume 7.6; Monocytes # (A) 0.4 k/uL (0-1.0); Monocytes % (A) 8 %; Neutrophils # (A) 3.4 k/uL (1.3-7.7); Neutrophils % (A) 73 %; Platelet Count 279 k/uL (150-450); RBC 3.62 m/uL (3.80-5.40); RDW 17.8 % (11.5-15.5); WBC 4.7 k/uL (3.8-10.6)
--- NOTE | 2019-11-24 06:59 | DS ---
DISCHARGE SUMMARY DATE OF SERVICE: 11/23/2019 FINAL DIAGNOSES: 1. Atrial fibrillation with fast ventricular rate. 2. Congestive heart failure acute exacerbation with acute on chronic systolic dysfunction ejection fraction 40-45%. 3. Hyponatremia. 4. Mild mitral regurgitation. 5. Mild to moderate tricuspid regurgitation on the 2D echo. 6. History of chronic atrial fibrillation. 7. Change in mental status secondary to acute metabolic encephalopathy, multifactorial. 8. Hyponatremia. 9. Anemia, normocytic anemia of chronic disease possibly. 10.History of hyperlipidemia. 11.Hypertension. 12.Hypothyroidism. 13.Left wrist fracture history. 14.Degenerative joint disease. 15.History of breast cancer history. 16.History of bilateral macular degeneration. 17.History of anxiety. 18.FULL CODE. Patient discharged in stable condition with guarded condition. Total time 30-35 minutes. HISTORY OF PRESENT ILLNESS: This is an 84-year-old woman with a past medical history of multiple medical problems. She recently moved to the area from [place] and was admitted with atrial fibrillation, as well as features of CHF. Treated with multiple medications. Patient improved significantly. Patient had Lasix. Cardiology saw the patient and 2-D echo was noted. Cardiology initiated digoxin. CT scan of the brain was also noted. PHYSICAL EXAMINATION: On exam vitals stable. Cardiovascular system is S1, S2 is normal. Respiration a few scattered rhonchi. Abdomen is soft. Nervous system with no focal deficits. As mentioned patient improved significantly. Patient will be discharged in stable condition with a guarded prognosis. DISCHARGE ADVICE AND MEDICATIONS: Diet is cardiac. Activity is limited until followup. Follow up with primary physician in 2-3 days. Follow up with Cardiology as recommended. Home care. Medications are; 1. Bactroban as before. 2. Benefiber 1 daily. 3. Cardizem CD 180 mg p.o. daily. 4. Calcium 1 p.o. b.i.d. 5. Ecotrin 81 mg. 6. Eliquis 5 mg p.o. b.i.d. 7. Fosamax 70 mg p.o. Wednesday. 8. K-Dur 20 mg p.o. b.i.d. 9. Lasix 40 mg p.o. daily. 10.Lipitor 10 mg p.o. daily. 11.Lopressor 50 mg q.h.s. and 25 mg p.o. daily. 12.Melatonin 3 mg q.h.s. 13.MiraLAX p.r.n. 14.Vitamin E with zinc as before. 15.Singulair 10 mg p.o. daily. 16.Levothyroxine 50 mcg p.o. daily. 17.Vasotec 20 mg p.o. daily. 18.Lanoxin 125 mcg p.o. daily. 19.Lexapro 5 mg q.h.s. CBC and BMP with primary physician. Once again the patient will be discharged in stable condition with guarded prognosis. MMODL / IJN: [id number] /
== END 2019-11-23 15:34 | disposition home health service (06) | DRG 291 ==
LOC: EC 11:54 → 1SOBS 14:36 → OBSVTOIN 11-21 12:34
PROVIDERS: ADMIT Internal Medicine; ATTEND Internal Medicine
DX: I11.0 Hypertensive heart disease with heart failure (principal); G93.41 Metabolic encephalopathy; E87.1 Hypo-osmolality and hyponatremia; I48.21 Permanent atrial fibrillation; E78.5 Hyperlipidemia, unspecified; M19.90 Unspecified osteoarthritis, unspecified site; R40.2362 Coma scale, best motor response, obeys commands, at arrival to emergency department; R40.2142 Coma scale, eyes open, spontaneous, at arrival to emergency department; R40.2252 Coma scale, best verbal response, oriented, at arrival to emergency department; D63.8 Anemia in other chronic diseases classified elsewhere; Z20.828 Contact with and (suspected) exposure to other viral communicable diseases; E03.9 Hypothyroidism, unspecified; H35.30 Unspecified macular degeneration; F41.9 Anxiety disorder, unspecified; I42.8 Other cardiomyopathies; I50.23 Acute on chronic systolic (congestive) heart failure; I08.1 Rheumatic disorders of both mitral and tricuspid valves; Z88.0 Allergy status to penicillin; Z88.8 Allergy status to other drugs, medicaments and biological substances; Z88.1 Allergy status to other antibiotic agents; Z85.3 Personal history of malignant neoplasm of breast; Z79.899 Other long term (current) drug therapy; Z79.82 Long term (current) use of aspirin; Z79.01 Long term (current) use of anticoagulants; Z83.6 Family history of other diseases of the respiratory system
CPT/HCPCS: 36415; 70450; 71045; 71046; 71275; 80048; 80053; 81003; 83735; 83880; 84439; 84443; 84481; 84484; 85025; 85379; 85610; 85730; 93005; 93306; 93970; 94640; 99285

== ENCOUNTER 2020-01-10 21:07 | Observation (INO) | payer MEDICARE ==
--- NOTE | 2020-01-10 22:42 | XR ---
EXAMINATION TYPE: XR chest 2V DATE OF EXAM: 01/10/2020 COMPARISON: 11/22/2019 HISTORY: Short of breath TECHNIQUE: FINDINGS: Heart is enlarged. There is mild pulmonary congestion. There is no definite pleural effusio n. Thoracic aorta is atheromatous. There are chest leads. There is 20% wedging of T12 vertebra. IMPRESSION: Changes consistent with some mild heart failure that is new compared to recent exam.
[2020-01-10 22:47] LABS: Albumin 3.6 g/dL (3.5-5.0); Magnesium 1.9 mg/dL (1.6-2.3); Potassium 4.9 mmol/L (3.5-5.1); Total Bilirubin 0.4 mg/dL (0.2-1.3); Total Protein 6.5 g/dL (6.3-8.2)
[2020-01-10 22:56] LABS: Anisocytosis Moderate; HCT 38.9 % (34.0-46.0); HGB 12.5 gm/dL (11.4-16.0); MCH 27.7 pg (25.0-35.0); MCHC 32.1 g/dL (31.0-37.0); MCV 86.4 fL (80.0-100.0); Mean Platelet Volume 9.7; Platelet Count 171 k/uL (150-450); RDW 20.3 % (11.5-15.5); WBC 4.7 k/uL (3.8-10.6)
[2020-01-10 23:06] LABS: INR 1.1 (<1.2); Partial Thromboplastin Time 25.3 sec (22.0-30.0); Prothrombin Time 10.8 sec (9.0-12.0)
[2020-01-10] MEDS ORDERED: NALOXONE 0.4 MG/ML 1 ML VIAL IV PRN (23:07)
--- NOTE | 2020-01-10 23:07 | ED ---
Arrhythmia/Palpitations HPI - General Chief Complaint: Arrhythmia/Palpitations Stated Complaint: afib Time Seen by Provider: 01/10/20 21:57 Source: patient, family, EMS, RN notes reviewed, old records reviewed Mode of arrival: EMS - History of Present Illness Initial Comments: Is a 84-year-old female history of atrial fibrillation was brought in by family by EMS because of terrible heart rates and blood pressure today. Apparently this has been going on for almost 4 days blood pressure is been variable heart rate was getting up as high as in the 140s. Other than palpitations patient had no other complaints. He was recently hospitalized for the same. No reports of fevers chills nausea vomiting sweats dizziness no loss of function to her upper or lower extremities MD Complaint: rapid heart beat - Related Data Home Medications Medication Instructions Recorded Confirmed Alendronate Sodium [Fosamax] 70 mg PO SA 11/20/19 11/20/19 Apixaban [Eliquis] 5 mg PO BID 11/20/19 11/20/19 Aspirin EC [Ecotrin Low Dose] 81 mg PO DAILY 11/20/19 11/20/19 Atorvastatin [Lipitor] 10 mg PO DAILY 11/20/19 11/20/19 Calcium Citrate/Vitamin D3 1 tab PO BID 11/20/19 11/20/19 [Citracal + D Maximum Caplet] Diltiazem Cd [Cardizem CD] 180 mg PO DAILY 11/20/19 11/20/19 Enalapril [Vasotec] 20 mg PO DAILY 11/20/19 11/20/19 Furosemide [Lasix] 40 mg PO DAILY 11/20/19 11/20/19 Levothyroxine Sodium [Synthroid] 50 mcg PO DAILY 11/20/19 11/20/19 Melatonin 5 mg PO HS 11/20/19 11/20/19 Metoprolol Tartrate [Lopressor] 25 mg PO DAILY 11/20/19 11/20/19 Metoprolol Tartrate [Lopressor] 50 mg PO HS 11/20/19 11/20/19 Montelukast [Singulair] 10 mg PO DAILY 11/20/19 11/20/19 Mupirocin 2% Oint [Bactroban 2% 1 applic TOPICAL TID 11/20/19 11/20/19 Oint] Polyethylene Glycol 3350 [Miralax] 17 gm PO DAILY PRN 11/20/19 11/20/19 Potassium Chloride ER [K-Dur 20] 20 meq PO BID 11/20/19 11/20/19 Vagisil Cream 1 applic VAGINAL DAILY 11/20/19 11/20/19 Vit C/E/Zn/Coppr/Lutein/Zeaxan 1 cap PO BID 11/20/19 11/20/19 [Preservision Areds 2 Softgel] Wheat Dextrin [Benefiber] 1 pack PO DAILY 11/20/19 11/20/19 Previous Rx's Medication Instructions Recorded Digoxin [Lanoxin] 125 mcg PO DAILY #0 tab 11/23/19 Escitalopram [Lexapro] 5 mg PO HS #30 tab 11/23/19 Allergies Allergy/AdvReac Type Severity Reaction Status Date / Time amiodarone AdvReac Unknown Verified 01/10/20 21:48 amoxicillin [From Augmentin] AdvReac Rash/Hives Verified 01/10/20 21:48 clavulanic acid AdvReac Rash/Hives Verified 01/10/20 21:48 [From Augmentin] Review of Systems ROS Statement: Those systems with pertinent positive or pertinent negative responses have been documented in the HPI. ROS Other: All systems not noted in ROS Statement are negative. Past Medical History Past Medical History: Atrial Fibrillation, Cancer, Eye Disorder, Hyperlipidemia, Hypertension, Thyroid Disorder Additional Past Medical History / Comment(s): Afib diagnosed approximately April 2019, hyponatremia, bilateral leg edema-much improved with lasix/pt did develop bilateral weeping lower leg sores-R leg healed/new dressing placed of L lower leg, fall 3 weeks ago with L wrist fracture/low back pain since/head injury with juanita since removed, 1993 L breast cancer with surgery, hypothyroid, bilateral macular degeneration, UTI, osteoporosis. History of Any Multi-Drug Resistant Organisms: None Reported Past Surgical History: Breast Surgery Additional Past Surgical History / Comment(s): 1993 breast cancer with L mastectomy, colonoscopy, hemorrhoidectomy, D&C, bilateral cataract removals/lens implants. Past Anesthesia/Blood Transfusion Reactions: No Reported Reaction Past Psychological History: Anxiety Smoking Status: Never smoker Past Alcohol Use History: None Reported Past Drug Use History: None Reported - Past Family History Father Family Medical History: Respiratory Disorder Additional Family Medical History / Comment(s): Father had black lung disease. Mother Family Medical History: CVA/TIA, Hypertension, Respiratory Disorder Additional Family Medical History / Comment(s): Mother had black lung. General Exam - General Exam Comments Initial Comments: This is a well-developed asthenic appearing female who is awake alert oriented 3 General appearance: alert, in no apparent distress Head exam: Present: atraumatic, normocephalic, normal inspection Eye exam: Present: normal appearance, PERRL, EOMI. Absent: scleral icterus, conjunctival injection, periorbital swelling ENT exam: Present: mucous membranes dry Neck exam: Present: normal inspection, full ROM, other (Stridor JVD or bruits). Absent: tenderness, meningismus, lymphadenopathy Respiratory exam: Present: normal lung sounds bilaterally. Absent: respiratory distress, wheezes, rales, rhonchi, stridor Cardiovascular Exam: Present: tachycardia, irregular rhythm. Absent: systolic murmur, diastolic murmur, rubs, gallop, clicks GI/Abdominal exam: Present: soft, normal bowel sounds. Absent: distended, tenderness, guarding, rebound, rigid Extremities exam: Present: normal inspection, full ROM, normal capillary refill. Absent: tenderness, pedal edema, joint swelling, calf tenderness Back exam: Present: normal inspection Neurological exam: Present: alert, oriented X3, CN II-XII intact Psychiatric exam: Present: normal affect, normal mood Skin exam: Present: warm, dry, intact, normal color. Absent: rash Course Vital Signs 01/10/20 21:18 Temperature 98.4 F Pulse Rate 71 Respiratory 16 Rate Blood Pressure 133/78 O2 Sat by Pulse 95 Oximetry EKG Findings - EKG Results: EKG: interpreted by [facility] (Atrial fibrillation rate of 91 QRS 82 QT since QTC 320/393) Medical Decision Making - Medical Decision Making The patient was evaluated by me and several occasions she has a variable heart rate in spite of normal medication intake. Patient will be admitted for inpatient evaluation by cardiology. I did discuss the case with Jim from Dr. Feliz's service - Lab Data Result diagrams: 01/10/20 22:16 01/10/20 22:16 Lab Results 01/10/20 01/10/20 Range/Units 22:16 22:16 WBC 4.7 (3.8-10.6) k/uL RBC 4.50 (3.80-5.40) m/uL Hgb 12.5 (11.4-16.0) gm/dL Hct 38.9 (34.0-46.0) % MCV 86.4 (80.0-100.0) fL MCH 27.7 (25.0-35.0) pg MCHC 32.1 (31.0-37.0) g/dL RDW 20.3 H (11.5-15.5) % Plt Count 171 (150-450) k/uL MPV 9.7 Anisocytosis Moderate Sodium 132 L (137-145) mmol/L Potassium 4.9 (3.5-5.1) mmol/L Chloride 98 (98-107) mmol/L Carbon Dioxide 29 (22-30) mmol/L Anion Gap 5 mmol/L BUN 22 H (7-17) mg/dL Creatinine 0.95 (0.52-1.04) mg/dL Est GFR (CKD-EPI)AfAm 64 (>60 ml/min/1.73 sqM) Est GFR (CKD-EPI)NonAf 56 (>60 ml/min/1.73 sqM) Glucose 140 H (74-99) mg/dL Calcium 9.0 (8.4-10.2) mg/dL Magnesium 1.9 (1.6-2.3) mg/dL Total Bilirubin 0.4 (0.2-1.3) mg/dL AST 28 (14-36) U/L ALT 10 (4-34) U/L Alkaline Phosphatase 79 (38-126) U/L Creatine Kinase 37 (30-135) U/L Total Protein 6.5 (6.3-8.2) g/dL Albumin 3.6 (3.5-5.0) g/dL - Radiology Data Radiology results: report reviewed (Imaging reviewed no evidence of acute findings.), image reviewed Disposition Clinical Impression: Atrial fibrillation Disposition: ADMITTED IP TO THIS [facility] Condition: Fair Referrals: Nonstaff,Physician [Primary Care Provider] - 1-2 days
[2020-01-10] MEDS ORDERED: SODIUM CHLORIDE 0.9% 1,000 ML IV SCH (23:15)
[2020-01-10 23:28] LABS: Eosinophils # (M) 0.28 k/uL (0-0.7); Lymphocytes # (M) 1.65 k/uL (1.0-4.8); Monocytes # (M) 0.33 k/uL (0-1.0); Neutrophils # (M) 2.44 k/uL (1.3-7.7); Neutrophils % (M) 52 %; Nucleated Red Blood Cells 0 /100 WBC (0-0); Poikilocytosis (M) Present; Total Cells Counted 100
[2020-01-10 23:29] LABS: Polychromasia Present
[2020-01-11] MEDS ORDERED: LEVOTHYROXINE 50 MCG TAB PO SCH (06:30)
[2020-01-11] MEDS: ASPIRIN 81 MG PO SCH ×2 (08:04→09:09)
[2020-01-11] MEDS ORDERED: lisinopriL 20 MG TAB PO SCH (09:00)
[2020-01-11] MEDS ORDERED: POTASSIUM CHLORIDE ER 20 MEQ TAB.ER PO SCH (09:00)
[2020-01-11] MEDS ORDERED: APIXABAN 5 MG TAB PO SCH (09:00)
[2020-01-11] MEDS ORDERED: METOPROLOL TARTRATE 50 MG TAB PO SCH ×3 (09:00→21:00)
[2020-01-11] MEDS ORDERED: NON FORMULARY DRUG (Calcium Citrate/Vitamin D3 [Citracal + D Maximum Caplet] 1 EACH Tablet PO SCH (09:00)
[2020-01-11] MEDS ORDERED: DILTIAZEM CD 180 MG CAP.ER.24H PO SCH (09:00)
[2020-01-11] MEDS ORDERED: DIGOXIN 125 MCG TAB PO SCH (09:00)
[2020-01-11] MEDS ORDERED: MONTELUKAST 10 MG TAB PO SCH (09:00)
[2020-01-11] MEDS ORDERED: ATORVASTATIN 10 MG TAB PO SCH (09:00)
[2020-01-11] MEDS ORDERED: FUROSEMIDE 40 MG TAB PO SCH (09:00)
--- NOTE | 2020-01-11 10:37 | P.CRDCN ---
History of Present Illness History of present illness: HISTORY OF PRESENTING ILLNESS This is a pleasant 84-year-old female past medical history significant for chronic persistent atrial fibrillation on eliquis, hypertension, dyslipidem ia and hypothyroidism. She follows in the office with Dr. Grijalva. We have been asked to see in consultation for atrial fibrillation. She is seen and examined sitting up eating breakfast. The clinical research monitor indicates she is in a-fib with rates between 90-120. She denies feeling palpitations and has no symptoms of dizziness, shortness of breath, chest pain or diaphoresis. She states she didn't feel any symptoms yesterday when her daughter brought her in. According to the daughter, the patient was sitting watching a movie and she decided she wanted to check her heart rate. The heart rate was fluctuating between 49-90 mostly and at times was going up to 140. The patient herself was asymptomatic. DIAGNOSTICS EKG reveals atrial fibrillation heart rate 91. Chest xray mild pulmonary congestion. Laboratory reviewed, CBC unremarkable, sodium 132, potassium 4.9, creatinine 0.95, magnesium 1.9, troponin negative x1 and TSH 3.1. Current cardiac medications include lasix 40 mg daily, enalapril 20 mg daily, lopressor 25 mg in the am and 50 at bedtime, diltiazem 180 mg daily, digoxin 125 mcg daily, atorvastatin 10 mg daily, aspirin 81 mg daily and eliquis 5 mg BID. Most recent echocardiogram obtain 10/2019 revealed impaired LV systolic function with EF 40-45%, mild MR and mild-moderate TR. REVIEW OF SYSTEMS At the time of my exam: CONSTITUTIONAL: Denies fever or chills. CARDIOVASCULAR: Denies chest pain, shortness of breath, orthopnea, PND or palpitations. RESPIRATORY: Denies cough. GASTROINTESTINAL: Denies abdominal pain, diarrhea, constipation, nausea or vomiting. MUSCULOSKELETAL: Denies myalgias. NEUROLOGIC: Denies numbness, tingling or weakness. ENDOCRINE: Denies fatigue, weight change, polydipsia or polyurina. GENITOURINARY: Denies burning, hematuria or urgency with micturation. HEMATOLOGIC: Denies history of anemia or bleeding. PHYSICAL EXAMINATION Blood pressure 111/62 heart rate 73 afebrile and maintaining oxygen saturation on room air. CONSTITUTIONAL: No apparent distress. HEENT: Head is normocephalic. Pupils are equal, round. Sclerae anicteric. Mucous membranes of the mouth are moist. No JVD. No carotid bruit. CHEST EXAMINATION: Lungs are clear to auscultation. No chest wall tenderness is noted on palpation or with deep breathing. HEART EXAMINATION: Regular rate and rhythm. S1, S2 heard. No murmurs, gallops or rub. ABDOMEN: Soft, nontender. Positive bowel sounds. EXTREMITIES: 2+ peripheral pulses, no lower extremity edema and no calf tenderness. NEUROLOGIC EXAMINATION: Patient is awake, alert and oriented x3. ASSESSMENT Chronic persistent atrial fibrillation with variable ventricular rates Hypertension Dyslipidemia Chronic systolic heart failure, clinically euvolemic Hypothyroidism PLAN Dr. Grijalva follows this patient closely in the office and has made medication adjustments due to tachycardia and hypotension. Her beta ani was recently decreased to 12.5 mg BID. We will increase slightly to 25 mg BID and follow her blood pressures and heart rates in the outpatient setting. Stable for discharge home, follow up in the office in 1-2 weeks. Thank you kindly for this consultation. Nurse Practitioner note has been reviewed, I agree with a documented findings and plan of care. Patient was seen and examined. Past Medical History Past Medical History: Atrial Fibrillation, Cancer, Eye Disorder, Hyperlipidemia, Hypertension, Thyroid Disorder Additional Past Medical History / Comment(s): Afib diagnosed approximately April 2019, hyponatremia, bilateral leg edema-much improved with lasix/pt did develop bilateral weeping lower leg sores-R leg healed/new dressing placed of L lower leg, fall 3 weeks ago with L wrist fracture/low back pain since/head injury with juanita since removed, 1993 L breast cancer with surgery, hypothyroid, bilateral macular degeneration, UTI, osteoporosis. History of Any Multi-Drug Resistant Organisms: None Reported Past Surgical History: Breast Surgery Additional Past Surgical History / Comment(s): 1993 breast cancer with L mastectomy, colonoscopy, hemorrhoidectomy, D&C, bilateral cataract removals/lens implants. Past Anesthesia/Blood Transfusion Reactions: No Reported Reaction Past Psychological History: Anxiety Smoking Status: Never smoker Past Alcohol Use History: None Reported Past Drug Use History: None Reported - Past Family History Father Family Medical History: Respiratory Disorder Additional Family Medical History / Comment(s): Father had black lung disease. Mother Family Medical History: CVA/TIA, Hypertension, Respiratory Disorder Additional Family Medical History / Comment(s): Mother had black lung. Medications and Allergies Home Medications Medication Instructions Recorded Confirmed Type Alendronate Sodium [Fosamax] 70 mg PO SA 11/20/19 01/10/20 History Apixaban [Eliquis] 5 mg PO BID 11/20/19 01/10/20 History Aspirin EC [Ecotrin Low Dose] 81 mg PO DAILY 11/20/19 01/10/20 History Atorvastatin [Lipitor] 10 mg PO DAILY 11/20/19 01/10/20 History Calcium Citrate/Vitamin D3 1 tab PO BID 11/20/19 01/10/20 History [Citracal + D Maximum Caplet] Diltiazem Cd [Cardizem CD] 180 mg PO DAILY 11/20/19 01/10/20 History Enalapril [Vasotec] 20 mg PO DAILY 11/20/19 01/10/20 History Furosemide [Lasix] 40 mg PO DAILY 11/20/19 01/10/20 History Levothyroxine Sodium [Synthroid] 50 mcg PO DAILY 11/20/19 01/10/20 History Melatonin 5 mg PO HS 11/20/19 01/10/20 History Montelukast [Singulair] 10 mg PO DAILY 11/20/19 01/10/20 History Potassium Chloride ER [K-Dur 20] 20 meq PO BID 11/20/19 01/10/20 History Vagisil Cream 1 applic VAGINAL DAILY 11/20/19 01/10/20 History Vit C/E/Zn/Coppr/Lutein/Zeaxan 1 cap PO BID 11/20/19 01/10/20 History [Preservision Areds 2 Softgel] Digoxin [Lanoxin] 125 mcg PO DAILY #0 tab 11/23/19 01/10/20 Rx Escitalopram [Lexapro] 5 mg PO HS #30 tab 11/23/19 01/10/20 Rx Carboxymethylcellulose Sodium 1 drop BOTH EYES HS 01/10/20 01/10/20 History [Refresh Tears] Metoprolol Tartrate 12.5 mg PO BID 01/10/20 01/10/20 History Sodium Chloride [Saline Nasal 1 spray EA NOSTRIL BID PRN 01/10/20 01/10/20 History [place]] Vitamin B Complex 1 cap PO DAILY 01/10/20 01/10/20 History Allergies Allergy/AdvReac Type Severity Reaction Status Date / Time amiodarone AdvReac Unknown Verified 01/10/20 23:48 amoxicillin [From Augmentin] AdvReac Rash/Hives Verified 01/10/20 23:48 clavulanic acid AdvReac Rash/Hives Verified 01/10/20 23:48 [From Augmentin] Physical Exam Vitals: Vital Signs Temp Pulse Resp BP Pulse Ox 01/11/20 05:23 98 F 73 16 111/62 96 01/11/20 04:07 84 22 135/89 97 01/11/20 00:41 98.2 F 80 16 135/89 97 01/10/20 21:18 98.4 F 71 16 133/78 95 Intake and Output 01/10/20 01/11/20 01/11/20 22:59 06:59 14:59 Other: Weight 74.389 kg Results 01/10/20 22:16 01/10/20 22:16 Cardiac Enzymes 01/10/20 01/10/20 Range/Units 22:16 22:16 AST 28 (14-36) U/L Troponin I <0.012 (0.000-0.034) ng/mL Coagulation 01/10/20 Range/Units 22:16 PT 10.8 (9.0-12.0) sec APTT 25.3 (22.0-30.0) sec CBC 01/10/20 Range/Units 22:16 WBC 4.7 (3.8-10.6) k/uL RBC 4.50 (3.80-5.40) m/uL Hgb 12.5 (11.4-16.0) gm/dL Hct 38.9 (34.0-46.0) % Plt Count 171 (150-450) k/uL Comprehensive Metabolic Panel 01/10/20 Range/Units 22:16 Sodium 132 L (137-145) mmol/L Potassium 4.9 (3.5-5.1) mmol/L Chloride 98 (98-107) mmol/L Carbon Dioxide 29 (22-30) mmol/L BUN 22 H (7-17) mg/dL Creatinine 0.95 (0.52-1.04) mg/dL Glucose 140 H (74-99) mg/dL Calcium 9.0 (8.4-10.2) mg/dL AST 28 (14-36) U/L ALT 10 (4-34) U/L Alkaline Phosphatase 79 (38-126) U/L Total Protein 6.5 (6.3-8.2) g/dL Albumin 3.6 (3.5-5.0) g/dL Current Medications Generic Name Dose Route Start Last Admin Trade Name Freq PRN Reason Stop Dose Admin Apixaban 5 mg 01/11/20 09:00 01/11/20 08:04 Apixaban 5 Mg Tab PO 5 mg BID PITO Administration Aspirin 81 mg 01/11/20 09:00 01/11/20 09:09 Aspirin 81 Mg PO 81 mg DAILY PITO Administration Atorvastatin Calcium 10 mg 01/11/20 09:00 01/11/20 08:06 Atorvastatin 10 Mg Tab PO 10 mg DAILY PITO Administration Digoxin 125 mcg 01/11/20 09:00 01/11/20 08:04 Digoxin 125 Mcg Tab PO 125 mcg DAILY PITO Administration Diltiazem HCl 180 mg 01/11/20 09:00 01/11/20 08:03 Diltiazem Cd 180 Mg Cap.Er.24h PO 180 mg DAILY PITO Administration Escitalopram Oxalate 5 mg 01/11/20 21:00 01/11/20 08:05 Escitalopram 5 Mg Tab PO 5 mg HS PITO Administration Furosemide 40 mg 01/11/20 09:00 01/11/20 08:06 Furosemide 40 Mg Tab PO 40 mg DAILY PITO Administration Sodium Chloride 1,000 mls @ 20 mls/hr 01/10/20 23:15 01/11/20 00:41 Saline 0.9% IV 20 mls/hr .Q24H PITO Administration Levothyroxine Sodium 50 mcg 01/11/20 06:30 01/11/20 06:33 Levothyroxine 50 Mcg Tab PO 50 mcg DAILY@0630 PITO Administration Lisinopril 40 mg 01/11/20 09:00 01/11/20 08:05 Lisinopril 20 Mg Tab PO 40 mg DAILY PITO Administration Melatonin 5 mg 01/11/20 21:00 Melatonin 5 Mg Tablet PO HS PITO Metoprolol Tartrate 50 mg 01/11/20 09:00 01/11/20 09:10 Metoprolol Tartrate 50 Mg Tab PO 50 mg BID PITO Administration Montelukast Sodium 10 mg 01/11/20 09:00 01/11/20 08:04 Montelukast 10 Mg Tab PO 10 mg DAILY PITO Administration Naloxone HCl 0.2 mg 01/10/20 23:07 Naloxone 0.4 Mg/Ml 1 Ml Vial IV Q2M PRN Opioid Reversal Potassium Chloride 20 meq 01/11/20 09:00 01/11/20 08:04 Potassium Chloride Er 20 Meq Tab.Er PO 20 meq BID PITO Administration Intake and Output 01/10/20 01/11/20 01/11/20 22:59 06:59 14:59 Other: Weight 74.389 kg 01/10/20 22:16 01/10/20 22:16
--- NOTE | 2020-01-11 10:41 | P.HPIM ---
History of Present Illness 81-year-old female is admitted for atrial fibrillation. Patient's daughter checked her pulse and it ranges anywhere between 50 to 130 because of which patient got ER although patient denied any chest pain lightheadedness shortness of breath. Patient chest x-ray showed pulmonary edema because of which I ordered a BNP. Patient to doesn't appear to be note a heart failure exacerbation clinically without any crackles. Patient did receive Lasix oral. Patient is supposed to take 40 mg daily of Lasix patient has said she has not been taking her Lasix lately. Patient was advised to resume the Lasix because of mild pulmonary edema. Patient denied any fever chills denied any dysuria nausea vomiting. Patient was evaluated by cardiology. Dr. Grijalva is a log roller who evaluated her here and she usually follows with him as an outpatient very well known to him. Patient heart rate is well controlled at this time and he is only recommending increasing metoprolol to 25 twice a day. Patient is also on Cardizem 180 daily low dose but patient does have low EF of around 40-45%. Cardiology is recommending to continue this medication as well along with the [place] and patient will be followed closely by cardiology as an outpatient. Review of Systems REVIEW OF SYSTEMS: CONSTITUTIONAL: No fever, no malaise, no fatigue. HEENT: No recent visual problems or hearing problems. Denied any sore throat. CARDIOVASCULAR: No chest pain, orthopnea, PND, no palpitations, no syncope. PULMONARY: No shortness of breath, no cough, no hemoptysis. GASTROINTESTINAL: No diarrhea, no nausea, no vomiting, no abdominal pain. NEUROLOGICAL: No headaches, no weakness, no numbness. HEMATOLOGICAL: Denies any bleeding or petechiae. GENITOURINARY: Denies any burning micturition, frequency, or urgency. MUSCULOSKELETAL/RHEUMATOLOGICAL: Denies any joint pain, swelling, or any muscle pain. ENDOCRINE: Denies any polyuria or polydipsia. The rest of the 14-point review of systems is negative. Past Medical History Past Medical History: Atrial Fibrillation, Cancer, Eye Disorder, Hyperlipidemia, Hypertension, Thyroid Disorder Additional Past Medical History / Comment(s): Afib diagnosed approximately April 2019, hyponatremia, bilateral leg edema-much improved with lasix/pt did develop bilateral weeping lower leg sores-R leg healed/new dressing placed of L lower leg, fall 3 weeks ago with L wrist fracture/low back pain since/head injury with juanita since removed, 1993 L breast cancer with surgery, hypothyroid, bilateral macular degeneration, UTI, osteoporosis. History of Any Multi-Drug Resistant Organisms: None Reported Past Surgical History: Breast Surgery Additional Past Surgical History / Comment(s): 1993 breast cancer with L mastectomy, colonoscopy, hemorrhoidectomy, D&C, bilateral cataract removals/lens implants. Past Anesthesia/Blood Transfusion Reactions: No Reported Reaction Past Psychological History: Anxiety Smoking Status: Never smoker Past Alcohol Use History: None Reported Past Drug Use History: None Reported - Past Family History Father Family Medical History: Respiratory Disorder Additional Family Medical History / Comment(s): Father had black lung disease. Mother Family Medical History: CVA/TIA, Hypertension, Respiratory Disorder Additional Family Medical History / Comment(s): Mother had black lung. Medications and Allergies Home Medications Medication Instructions Recorded Confirmed Type Alendronate Sodium [Fosamax] 70 mg PO SA 11/20/19 01/10/20 History Apixaban [Eliquis] 5 mg PO BID 11/20/19 01/10/20 History Aspirin EC [Ecotrin Low Dose] 81 mg PO DAILY 11/20/19 01/10/20 History Atorvastatin [Lipitor] 10 mg PO DAILY 11/20/19 01/10/20 History Calcium Citrate/Vitamin D3 1 tab PO BID 11/20/19 01/10/20 History [Citracal + D Maximum Caplet] Diltiazem Cd [Cardizem CD] 180 mg PO DAILY 11/20/19 01/10/20 History Enalapril [Vasotec] 20 mg PO DAILY 11/20/19 01/10/20 History Furosemide [Lasix] 40 mg PO DAILY 11/20/19 01/10/20 History Levothyroxine Sodium [Synthroid] 50 mcg PO DAILY 11/20/19 01/10/20 History Melatonin 5 mg PO HS 11/20/19 01/10/20 History Montelukast [Singulair] 10 mg PO DAILY 11/20/19 01/10/20 History Potassium Chloride ER [K-Dur 20] 20 meq PO BID 11/20/19 01/10/20 History Vagisil Cream 1 applic VAGINAL DAILY 11/20/19 01/10/20 History Vit C/E/Zn/Coppr/Lutein/Zeaxan 1 cap PO BID 11/20/19 01/10/20 History [Preservision Areds 2 Softgel] Digoxin [Lanoxin] 125 mcg PO DAILY #0 tab 11/23/19 01/10/20 Rx Escitalopram [Lexapro] 5 mg PO HS #30 tab 11/23/19 01/10/20 Rx Carboxymethylcellulose Sodium 1 drop BOTH EYES HS 01/10/20 01/10/20 History [Refresh Tears] Sodium Chloride [Saline Nasal 1 spray EA NOSTRIL BID PRN 01/10/20 01/10/20 History [place]] Vitamin B Complex 1 cap PO DAILY 01/10/20 01/10/20 History Metoprolol Tartrate [Lopressor] 25 mg PO BID #60 tab 01/11/20 Rx Allergies Allergy/AdvReac Type Severity Reaction Status Date / Time amiodarone AdvReac Unknown Verified 01/10/20 23:48 amoxicillin [From Augmentin] AdvReac Rash/Hives Verified 01/10/20 23:48 clavulanic acid AdvReac Rash/Hives Verified 01/10/20 23:48 [From Augmentin] Physical Exam Vitals: Vital Signs Temp Pulse Resp BP Pulse Ox 01/11/20 05:23 98 F 73 16 111/62 96 01/11/20 04:07 84 22 135/89 97 01/11/20 00:41 98.2 F 80 16 135/89 97 01/10/20 21:18 98.4 F 71 16 133/78 95 Intake and Output 01/10/20 01/11/20 01/11/20 22:59 06:59 14:59 Other: Weight 74.389 kg PHYSICAL EXAMINATION: GENERAL: The patient is alert and oriented x3, not in any acute distress. Well developed, well nourished. HEENT: Pupils are round and equally reacting to light. EOMI. No scleral icterus. No conjunctival pallor. Normocephalic, atraumatic. No pharyngeal erythema. No thyromegaly. CARDIOVASCULAR: S1 and S2 present. No murmurs, rubs, or gallops. Irregularly irregular rhythm PULMONARY: Chest is clear to auscultation, no wheezing or crackles. ABDOMEN: Soft, nontender, nondistended, normoactive bowel sounds. No palpable organomegaly. MUSCULOSKELETAL: No joint swelling or deformity. EXTREMITIES: No cyanosis, clubbing, or pedal edema. NEUROLOGICAL: Gross neurological examination did not reveal any focal deficits. SKIN: No rashes. Results CBC & Chem 7: 01/10/20 22:16 01/10/20 22:16 Labs: Abnormal Lab Results - Last 24 Hours (Table) 01/10/20 01/10/20 Range/Units 22:16 22:16 RDW 20.3 H (11.5-15.5) % Sodium 132 L (137-145) mmol/L BUN 22 H (7-17) mg/dL Glucose 140 H (74-99) mg/dL Assessment and Plan Plan: -Atrial fibrillation: Presently rate controlled patient has persistent A. fib patient is already on anticoagulation above-mentioned changes in her medications will be made and patient will be discharged today. -Congestive heart failure chronic systolic dysfunction EF of around the 40-45% with minimally or no exacerbation -Hypertension -Dyslipidemia -Hypothyroidism Patient will be resumed on the rest of her medications and patient will be discharged today.
[2020-01-11 15:07] VITALS: BP 115/75; PULSE 83; RESP 18; TEMP 98.2
[2020-01-11] MEDS ORDERED: METOPROLOL TARTRATE 25 MG TAB PO SCH (21:00)
[2020-01-11] MEDS ORDERED: MELATONIN 5 MG TABLET PO SCH (21:00)
[2020-01-11] MEDS ORDERED: ESCITALOPRAM 5 MG TAB PO SCH (21:00)
== END 2020-01-11 15:07 | disposition home or self-care (01) ==
LOC: EC 21:07 → 1SOBS 23:07
PROVIDERS: ADMIT Internal Medicine; ATTEND Internal Medicine
DX: I48.19 Other persistent atrial fibrillation (principal); I11.0 Hypertensive heart disease with heart failure; I50.22 Chronic systolic (congestive) heart failure; E78.5 Hyperlipidemia, unspecified; M54.5 Low back pain; E03.9 Hypothyroidism, unspecified; M81.0 Age-related osteoporosis without current pathological fracture; H35.30 Unspecified macular degeneration; R09.89 Other specified symptoms and signs involving the circulatory and respiratory systems; T50.1X6A Underdosing of loop [high-ceiling] diuretics, initial encounter; Z91.14 Patient's other noncompliance with medication regimen; F41.9 Anxiety disorder, unspecified; Z79.83 Long term (current) use of bisphosphonates; Z79.01 Long term (current) use of anticoagulants; Z79.82 Long term (current) use of aspirin; Z79.899 Other long term (current) drug therapy; Z79.890 Hormone replacement therapy; Z88.8 Allergy status to other drugs, medicaments and biological substances; Z88.1 Allergy status to other antibiotic agents; Z91.81 History of falling; Z87.828 Personal history of other (healed) physical injury and trauma; Z85.3 Personal history of malignant neoplasm of breast; Z87.440 Personal history of urinary (tract) infections; Z90.12 Acquired absence of left breast and nipple; Z96.1 Presence of intraocular lens; Z82.49 Family history of ischemic heart disease and other diseases of the circulatory system; Z82.3 Family history of stroke; Z83.6 Family history of other diseases of the respiratory system
CPT/HCPCS: 99285; 36415; 93005; 83880; 80053; 82550; 83735; 84443; 84484; 85025; 85610; 85730; 71046; G0378 ×2